=== PATIENT | male | born 2000 | race African-American/Black ===

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

== ENCOUNTER 2020-03-23 22:57 | Emergency (ER) | payer OTHER ==
[~2020-03-23] VITALS: Ht 162.6 cm; Wt 70.0 kg
[~2020-03-23 22:57] MED LIST: ACULAR LS0.4 % OS; ERYTHROMYCIN O3.5 GM OU
[2020-03-24 00:25] LABS: HEMATOCRIT 42.8 % (39.0-50.0); HEMOGLOBIN 14.1 g/dl (14.0-18.0); IMMATURE GRANULOCYTES 0.4 % (0.0-5.0); MEAN CELL VOLUME 87.2 fL CALC (80.0-100.0); MEAN CORPUSCULAR HGB 28.7 pG CALC (26.0-32.0); MEAN CORPUSCULAR HGB CONC 32.9 g/dL CAL (32.0-36.0); RED BLOOD COUNT 4.91 mill/uL (4.70-6.10); RED CELL DISTRI WIDTH 12.9 % (11.5-15.5)
[2020-03-24 01:17] VITALS: BP 140/78
== END 2020-03-24 01:24 | disposition home or self-care (01) ==
LOC: ED 22:57
PROVIDERS: Family Medicine
DX: B34.9 Viral infection, unspecified (principal); Z20.828 Contact with and (suspected) exposure to other viral communicable diseases